=== PATIENT | male | born 1990 | race Caucasian/White ===

== ENCOUNTER 2022-12-06 20:33 | Emergency (ER) | payer OTHER ==
[~2022-12-06] VITALS: Ht 175.3 cm; Wt 99.8 kg
[2022-12-06 20:35] VITALS: BP 142/85
--- NOTE | 2022-12-06 20:38 | NUR ---
TO LOBBY A/W BED AMBULATORY
--- NOTE | 2022-12-06 21:20 | NUR ---
SEEN AND EXAMINED BY GRISELDA
--- NOTE | 2022-12-06 23:30 | NUR ---
all results back and noted by Ermd and for D/C
[2022-12-06 23:45] VITALS: BP 142/85
--- NOTE | 2022-12-06 23:45 | NUR ---
Patient discharged with v/s stable. Written and verbal after care instructions given and explained. Patient verbalized understanding. Ambulatory with steady gait. All questions addressed prior to discharge. Advised to follow up with PMD.
== END 2022-12-06 23:45 | disposition home or self-care (01) ==
LOC: MED 20:33
DX: M54.9 Dorsalgia, unspecified (principal); M25.531 Pain in right wrist; M25.532 Pain in left wrist; V59.9XXA Occupant (driver) (passenger) of pick-up truck or van injured in unspecified traffic accident, initial encounter; Y93.89 Activity, other specified; Y92.89 Other specified places as the place of occurrence of the external cause; Y99.8 Other external cause status
CPT/HCPCS: 72040; 72072; 72100; 99284